=== PATIENT | female | born 1960 | race African-American/Black ===

== ENCOUNTER 2018-01-11 15:39 | Outpatient (CLI) | payer MEDICAID | END 2018-01-11 15:40 | disposition home or self-care (01) | LOC: CTENTCT 15:39 | PROVIDERS: ATTEND Specialist | DX: J32.9 Chronic sinusitis, unspecified (principal) | CPT/HCPCS: 70486 ==

== ENCOUNTER 2018-01-20 15:10 | Day surgery (SDC) | payer MEDICAID ==
[2018-01-19 12:32] VITALS: BMI 34.9
[2018-01-20] MEDS ORDERED: Oxymetazoline HCl 0.05% ( 15 ML ) ONE ×2 (15:42→15:53)
[2018-01-20] MEDS ORDERED: Lidocaine 1% w/Epinephrine 1:100K 30 ML VIAL ONE (15:42)
[2018-01-20] MEDS ORDERED: Fentanyl 100 MCG/2 ML VIAL ONE (15:51)
[2018-01-20] MEDS ORDERED: Midazolam HCl 2 mg/2 ml Vial ONE (15:53)
--- NOTE | 2018-01-21 15:15 | EKG ---
Test Reason : Blood Pressure : / mmHG Vent. Rate : 070 BPM Atrial Rate : 070 BPM P-R Int : 152 ms QRS Dur : 088 ms QT Int : 422 ms P-R-T Axes : 031 -30 -01 degrees QTc Int : 455 ms Normal sinus rhythm with sinus arrhythmia Left axis deviation Moderate voltage criteria for LVH, may be normal variant Abnormal ECG No previous ECGs available Confirmed by SRI SAMUEL, DR. Goetz ([id number]) on 01/21/2018 3:14:56 PM Referred By: KYLE Confirmed By:DR. Bishnu FIERRO MD
== END 2018-01-20 16:50 | disposition home or self-care (01) ==
LOC: SDC 15:10
PROVIDERS: ATTEND Specialist
DX: J32.0 Chronic maxillary sinusitis (principal); J33.0 Polyp of nasal cavity; J34.2 Deviated nasal septum; I10 Essential (primary) hypertension; G89.4 Chronic pain syndrome; M79.7 Fibromyalgia; F17.210 Nicotine dependence, cigarettes, uncomplicated; Z79.899 Other long term (current) drug therapy; Z88.5 Allergy status to narcotic agent; Z88.8 Allergy status to other drugs, medicaments and biological substances; Z53.9 Procedure and treatment not carried out, unspecified reason
CPT/HCPCS: 36415; 85014; 93005; 93010; J2001; J2250; J3010